=== PATIENT | female | born 1935 | race African-American/Black ===

== ENCOUNTER 2016-09-28 11:47 | Emergency (ER) | payer MEDICARE ==
[~2016-09-28 11:47] MED LIST: ASAB PO; LEVOTHYROXIN75 MCG PO; LORTAB 5 PO; NIFEDICAL XL30 MG PO; PENTOXIL400 MG PO; PERSANTINE50 MG PO; PROAIR HFA INH; PROTONIX PO; SYMBICORT 80/4.1 INH INH; TRENTAL400 PO; VITAMIN D400 UNI1 PO
== END 2016-09-28 12:48 | disposition home or self-care (01) ==
LOC: ER 11:47
DX: M79.604 Pain in right leg (principal); Z91.013 Allergy to seafood; Z91.018 Allergy to other foods; Z79.82 Long term (current) use of aspirin; Z79.899 Other long term (current) drug therapy
CPT/HCPCS: 99284

== ENCOUNTER 2016-12-28 23:15 | Emergency (ER) | payer MEDICARE ==
[2016-12-29 01:06] LABS: BASOPHILS ABSOLUTE 0.06 10/3/uL (0.0-0.16); EOSINOPHILS ABSOLUTE 1.02 10/3/uL (0.0-0.53); HEMOGLOBIN 10.7 g/dL (12.0-16.0); IMMATURE GRANULOCYTES 0.2 %; IMMATURE GRANULOCYTES ABSOLUTE 0.01 10/3/uL (0.0-0.11); MEAN CORPUS HGB CONC 33.6 g/dL (32.0-36.0); MEAN CORPUSCULAR HEMOGLOB 27.9 pg (26.0-34.0); MEAN CORPUSCULAR VOLUME 82.8 fL (80-100); MONOCYTES 11.5 %; MONOCYTES ABSOLUTE 0.69 10/3/uL (0.21-1.20); NEUTROPHILS 35.3 %; NEUTROPHILS ABSOLUTE 2.12 10/3/uL (2.02-8.40); PLATELET COUNT 244 10/3/uL (150-400); RED CELL COUNT 3.84 10/6/uL (4.0-5.6)
[2016-12-29 01:07] LABS: HEMATOCRIT 31.8 % (36.0-48.0); MANUAL DIFF NO %; RBC DISTRIBUTION WIDTH 17.3 % (12.0-16.0)
[2016-12-29 01:17] LABS: INTERNATIONAL NORMAL RATI 1.9 UNITS (-); PARTIAL THROMBO TIME 42.1 SEC (22.5-37.2)
[2016-12-29 01:22] LABS: BUN (BLOOD UREA NITROGEN) 13 MG/DL (6-23); CALCIUM, SERUM 8.4 MG/DL (8.5-10.4); CHEST PAIN PROFILE TAT 0 Hrs 20 Mins; CHLORIDE, SERUM 115 MMOL/L (96-112); CO2 (CARBON DIOXIDE) 26 MMOL/L (24-34); CREATININE 1.33 MG/DL (0.55-1.02); GFR AFRICAN AMERICAN 43 ML/MIN (>=60); GFR NON AFRICAN AMERICAN 37 ML/MIN (>=60); GLUCOSE, SERUM 86 MG/DL (60-99); POTASSIUM, SERUM 3.7 MMOL/L (3.5-5.3); SODIUM, SERUM 148 MMOL/L (135-148); TROPONIN I <0.02 NG/ML (<0.05)
[2016-12-29 01:41] LABS: ASCORBIC ACID (UR NOT ORDER) NEG (NEG); BILIRUBIN, URINE NEGATIVE (NEG); ER URINALYSIS TAT 0 Hrs 00 Mins; KETONE, URINE NEGATIVE (NEG); LEUKOCYTE ESTERASE(NOT OR SMALL (NEG); NITRITE (URINE) NEG (NEG); WBC (NOT ORDERED) (RFLEX) 6 (0-5)
== END 2016-12-29 02:36 | disposition home or self-care (01) ==
LOC: ER 23:15
PROVIDERS: Specialist
DX: R55 Syncope and collapse (principal); Z91.013 Allergy to seafood; Z79.82 Long term (current) use of aspirin; Z79.899 Other long term (current) drug therapy
CPT/HCPCS: 70450; 71010; 80048; 81001; 83735; 83880; 84484; 85025; 85610; 85730; 87086; 93005; 99285